=== PATIENT | male | born 1960 | race Two or more races ===

== ENCOUNTER 2017-05-08 12:19 | Emergency (ER) | payer SELFPAY ==
[~2017-05-08] VITALS: Ht 162.6 cm; Wt 86.2 kg
--- NOTE | 2017-05-08 12:40 | ER Report ---
History and Physical Time Seen By MD: 12:39 HPI/ROS CHIEF COMPLAINT: Cough, shortness of breath HISTORY OF PRESENT ILLNESS: 56-year-old male patient presents to emergency room with complaint of cough. Patient states this been going on for the past 3 days. Patient states she's not had any fevers, chills, nausea, vomiting or diarrhea. Patient states that he will have coughing fits and have a hard time catching his breath after that. Patient states that he has not taken any medication for this. 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 REVIEW OF SYSTEMS: Respiratory: As noted above Cardiovascular: No chest pain, no palpitations. Gastrointestinal: No vomiting, no abdominal pain. Musculoskeletal: No back pain. Allergies: Coded Allergies: No Known Drug Allergies (Unverified , 05/08/17) Home Meds Active Scripts Promethazine HCl/Codeine (Prometh-Codein 6.25-10 mg/5 ml) 5 Ml Syrup, 1 TSP PO QHS Y for COUGH, #120 ML Prov:MANJIT RED 05/08/17 Benzonatate (BENZONATATE) 200 Mg Capsule, 200 MG PO TID Y for COUGH, #15 CAP Prov:MANJIT RED 05/08/17 Past Medical/Surgical History Patient denies any pertinent medical or surgical history. Constitutional Vital Sign - Last 24 Hours 05/08/17 05/08/17 05/08/17 05/08/17 12:36 12:38 12:40 12:49 Temp 98.4 Pulse 73 Resp 20 B/P (MAP) 121/82 (95) 127/98 (108) 127/98 Pulse Ox 90 90 O2 Delivery Room Air 05/08/17 05/08/17 05/08/17 05/08/17 13:00 13:19 13:30 13:49 Pulse 70 63 B/P (MAP) 118/85 (96) 124/81 (95) Pulse Ox 90 85 05/08/17 14:00 B/P (MAP) 111/80 (90) Physical Exam General Appearance: The patient is alert, has no immediate need for airway protection and no current signs of toxicity. Eyes: Pupils equal and round no injection. Respiratory: Chest is non tender, lungs are clear to auscultation. Cardiac: regular rate and rhythm Gastrointestinal: Abdomen is soft and non tender, no masses, bowel sounds normal. Musculoskeletal: Neck: Neck is supple and non tender. Extremities have full range of motion and are non tender. Skin: No rashes or lesions. DIFFERENTIAL DIAGNOSIS: After history and physical exam differential diagnosis was considered for shortness of breath including but not limited to pulmonary infectious process, COPD, asthma, pulmonary embolus and congestive heart failure. Medical Decision Making Data Points Result Diagram: 05/08/17 1257 05/08/17 1257 Laboratory Hematology Test 05/08/17 12:46 05/08/17 12:57 Influenza Type A Antigen Negative (NEGATIVE) Influenza Type B Antigen Positive (NEGATIVE) Red Blood Count 4.79 M/uL (4.00-5.60) Mean Corpuscular Volume 91.8 fL (80.0-96.0) Mean Corpuscular Hemoglobin 32.4 pg (26.0-33.0) Mean Corpuscular Hemoglobin Concent 35.3 g/dL (32.0-36.0) Red Cell Distribution Width 13.0 % (11.5-14.5) Mean Platelet Volume 8.4 fL (7.2-11.1) Neutrophils (%) (Auto) 60.3 % (39.4-72.5) Lymphocytes (%) (Auto) 24.1 % (17.6-49.6) Monocytes (%) (Auto) 12.8 % (4.1-12.4) Eosinophils (%) (Auto) 0.1 % (0.4-6.7) Basophils (%) (Auto) 2.7 % (0.3-1.4) Nucleated RBC Relative Count (auto) 0.0 /100WBC Neutrophils # (Auto) 3.4 K/uL (2.0-7.4) Lymphocytes # (Auto) 1.4 K/uL (1.3-3.6) Monocytes # (Auto) 0.7 K/uL (0.3-1.0) Eosinophils # (Auto) 0.0 K/uL (0.0-0.5) Basophils # (Auto) 0.2 K/uL (0.0-0.1) Nucleated RBC Absolute Count (auto) 0.00 K/uL Sodium Level 139 mmol/L (137-145) Potassium Level 3.8 mmol/L (3.5-5.0) Chloride Level 105 mmol/L (98-107) Carbon Dioxide Level 22 mmol/L (22-30) Blood Urea Nitrogen 17 mg/dl (9-21) Creatinine 0.80 mg/dl (0.66-1.25) Glomerular Filtration Rate Calc > 60.0 Random Glucose 99 mg/dl (75-110) Calcium Level 9.0 mg/dl (8.4-10.2) Total Bilirubin 0.5 mg/dl (0.2-1.3) Aspartate Amino Transf (AST/SGOT) 108 U/L (0-35) Alanine Aminotransferase (ALT/SGPT) 154 U/L (0-56) Alkaline Phosphatase 80 U/L (0-126) Total Protein 7.4 gm/dl (6.3-8.2) Albumin 4.3 g/dl (3.5-5.0) Chemistry Test 05/08/17 12:46 05/08/17 12:57 Influenza Type A Antigen Negative (NEGATIVE) Influenza Type B Antigen Positive (NEGATIVE) White Blood Count 5.7 k/uL (4.5-11.0) Red Blood Count 4.79 M/uL (4.00-5.60) Hemoglobin 15.5 g/dL (14.0-18.0) Hematocrit 43.9 % (42.0-52.0) Mean Corpuscular Volume 91.8 fL (80.0-96.0) Mean Corpuscular Hemoglobin 32.4 pg (26.0-33.0) Mean Corpuscular Hemoglobin Concent 35.3 g/dL (32.0-36.0) Red Cell Distribution Width 13.0 % (11.5-14.5) Platelet Count 122 K/uL (150-450) Mean Platelet Volume 8.4 fL (7.2-11.1) Neutrophils (%) (Auto) 60.3 % (39.4-72.5) Lymphocytes (%) (Auto) 24.1 % (17.6-49.6) Monocytes (%) (Auto) 12.8 % (4.1-12.4) Eosinophils (%) (Auto) 0.1 % (0.4-6.7) Basophils (%) (Auto) 2.7 % (0.3-1.4) Nucleated RBC Relative Count (auto) 0.0 /100WBC Neutrophils # (Auto) 3.4 K/uL (2.0-7.4) Lymphocytes # (Auto) 1.4 K/uL (1.3-3.6) Monocytes # (Auto) 0.7 K/uL (0.3-1.0) Eosinophils # (Auto) 0.0 K/uL (0.0-0.5) Basophils # (Auto) 0.2 K/uL (0.0-0.1) Nucleated RBC Absolute Count (auto) 0.00 K/uL Glomerular Filtration Rate Calc > 60.0 Calcium Level 9.0 mg/dl (8.4-10.2) Total Bilirubin 0.5 mg/dl (0.2-1.3) Aspartate Amino Transf (AST/SGOT) 108 U/L (0-35) Alanine Aminotransferase (ALT/SGPT) 154 U/L (0-56) Alkaline Phosphatase 80 U/L (0-126) Total Protein 7.4 gm/dl (6.3-8.2) Albumin 4.3 g/dl (3.5-5.0) EKG/Imaging Imaging 2 VIEWS CHEST INDICATION: Cough, chest pain, shortness of breath. COMPARISON: None available FINDINGS: Cardiomediastinal silhouette and pulmonary vessels within normal limits. There is no focal infiltrate or lobar consolidation. There is no pneumothorax or pleural effusion. No nodule. Upper abdomen is unremarkable. No acute bony abnormality. Postsurgical changes to the left shoulder. IMPRESSION: 1. No acute cardiopulmonary process. Report Dictated By: Oliver Wilder at 05/08/2017 2:17 PM Report E-Signed By: Oliver Wilder at 05/08/2017 2:18 PM ED Course/Re-evaluation ED Course Patient was administered on exam room, history and physical were done. Differential diagnosis was considered. A CBC, CMP, influenza screen, chest x- ray were done. Lab results were unremarkable except the patient was positive for influenza B. Chest x-ray showed no acute cardiopulmonary processes. I discussed the findings with the patient. We will go ahead and discharge him home. We will give him a prescription for promethazine with codeine cough syrup and benzonatate. He is to follow-up with his primary care provider in the next week. He is return to emergency room if condition worsens. Patient verbalized understanding and agreement. Decision to Disposition Date: May 08, 2017 Decision to Disposition Time: 14:26 Depart Departure Latest Vital Signs Vital Signs Date Time Temp Pulse Resp B/P (MAP) Pulse Ox O2 Delivery O2 Flow Rate FiO2 05/08/17 14:00 111/80 (90) 05/08/17 13:49 63 85 05/08/17 12:40 98.4 20 Room Air Impression: Primary Impression: Influenza B Condition: Improved Disposition: HOME OR SELF-CARE New Scripts Promethazine HCl/Codeine (Prometh-Codein 6.25-10 mg/5 ml) 5 Ml Syrup 1 TSP PO QHS Y for COUGH, #120 ML Prov: MANJIT RED 05/08/17 Benzonatate (BENZONATATE) 200 Mg Capsule 200 MG PO TID Y for COUGH, #15 CAP Prov: MANJIT RED 05/08/17 Patient Instructions: Influenza (ED) Additional Instructions: Increase fluid intake. Get plenty of rest. Limit activity by pain. Take Tylenol or Ibuprofen as needed for fevers or pain. Follow up with your primary care provider in the next week. Stay home until you are fever free for 24 hours. MANJIT RED May 08, 2017 12:40
[2017-05-08 13:03] LABS: PLATELET COUNT, AUTOMATED 122 K/uL (150-450)
[2017-05-08 14:00] VITALS: BP 111/80
--- NOTE | 2017-05-08 14:22 | RADIOLOGY IMAGING REPORT ---
FACILITY: [facility] [place] PATIENT NAME: David Khan : 1960 MR: [id number] V: [id number] EXAM DATE: ORDERING PHYSICIAN: MANJIT RED TECHNOLOGIST: [place] [facility] [place] David Khan : 1960 Visit/Account:[id number] Date of Sevice: 05/08/2017 2 VIEWS CHEST INDICATION: Cough, chest pain, shortness of breath. COMPARISON: None available FINDINGS: Cardiomediastinal silhouette and pulmonary vessels within normal limits. There is no focal infiltrate or lobar consolidation. There is no pneumothorax or pleural effusion. No nodule. Upper abdomen is unremarkable. No acute bony abnormality. Postsurgical changes to the left shoulder. IMPRESSION: 1. No acute cardiopulmonary process. Report Dictated By: Oliver Wilder at 05/08/2017 2:17 PM Report E-Signed By: Oliver Wilder at 05/08/2017 2:18 PM [id number]
[2017-05-08] MEDS ORDERED: BENZ200C15 PO (14:28)
[2017-05-08] MEDS ORDERED: PROM5SYR PO (14:28)
== END 2017-05-08 14:34 | disposition home or self-care (01) ==
LOC: ER 12:45
DX: J11.1 Influenza due to unidentified influenza virus with other respiratory manifestations (principal)
CPT/HCPCS: 36415; 71046; 82040; 82247; 82310; 82374; 82435; 82565; 82947; 84075; 84132; 84155; 84295; 84450; 84460; 84520; 85025; 87502; 99283

== ENCOUNTER 2017-08-09 13:32 | Emergency (ER) | payer SELFPAY ==
[~2017-08-09 13:32] MED LIST: BENZ200C15 PO; PROM5SYR PO
--- NOTE | 2017-08-09 13:52 | ER Report ---
History and Physical Time Seen By MD: 13:41 Hx. of Stated Complaint: pressure chest and sob, dizzy and weak HPI/ROS CHIEF COMPLAINT: Chest pain HISTORY OF PRESENT ILLNESS: 56-year-old male patient presents to emergency room with complaint of chest pain. Patient states that his chest pain started approximately 30 minutes prior to arrival. Patient states that he has had problems in the past. He denies having any fevers, chills, nausea, vomiting or diarrhea. Patient states he has been feeling short of breath with this. Patient states that he has not taken any medication for this. REVIEW OF SYSTEMS: Respiratory: No cough, no dyspnea. Cardiovascular: As noted above Gastrointestinal: No vomiting, no abdominal pain. Musculoskeletal: No back pain. Allergies: Coded Allergies: No Known Drug Allergies (Unverified , 05/08/17) Home Meds Active Scripts Hydroxyzine Hcl (HYDROXYZINE HCL) 25 Mg Tablet, 25 MG PO Q6-8H Y for ANXIETY, # 30 TAB Prov:MANJIT RED [facility] 08/09/17 Discontinued Scripts Promethazine HCl/Codeine (Prometh-Codein 6.25-10 mg/5 ml) 5 Ml Syrup, 1 TSP PO QHS Y for COUGH, #120 ML Prov:TEOFILOMANJIT [facility] 05/08/17 Benzonatate (BENZONATATE) 200 Mg Capsule, 200 MG PO TID Y for COUGH, #15 CAP Prov:TEOFILOMANJIT [facility] 05/08/17 Past Medical/Surgical History Patient has a past medical history of fractures, alcohol use. Patient has surgical history of left shoulder surgery. Patient has a family history of heart disease. Reviewed Nurses Notes: Yes Hx Substance Use Disorder: No Hx Alcohol Use: Yes (6 PACK ) Constitutional Vital Sign - Last 24 Hours 08/09/17 08/09/17 08/09/17 08/09/17 13:32 13:36 13:38 13:40 Pulse ??? 84 Resp 16 B/P (MAP) 162/102 (122) 162/106 148/108 (121) Pulse Ox 96 O2 Delivery Room Air 08/09/17 08/09/17 08/09/17 08/09/17 13:47 14:00 14:02 14:12 Pulse 84 83 Resp 33 15 B/P (MAP) 140/98 (112) 127/93 (104) Pulse Ox 97 95 18 18 4//18 18 14:15 14:17 14:20 14:25 Pulse 92 Resp 27 B/P (MAP) 127/86 (100) ???/??? (1665) 48/44 (45) Pulse Ox 88 18 /18 /18 08/09/17 14:30 14:32 14:35 14:40 Pulse 89 Resp 27 B/P (MAP) 116/85 (95) 121/87 (98) 111/83 (92) Pulse Ox 90 18 /18 //18 08/09/17 14:45 14:47 14:50 14:55 Pulse 78 Resp 24 B/P (MAP) 114/89 (97) 118/84 (95) 115/89 (98) Pulse Ox 92 18 //18 //18 08/09/17 15:00 15:02 15:05 15:10 Pulse 74 72 Resp 20 20 B/P (MAP) 113/84 (94) 117/83 (94) 113/83 (93) Pulse Ox 89 88 08/09/18 08/09/18 //18 08/09/17 15:15 15:20 15:25 15:30 Pulse 67 Resp 21 B/P (MAP) 112/82 (92) 113/81 (92) 111/80 (90) 115/84 (94) Pulse Ox 89 18 18 18 08/09/17 15:35 15:40 15:45 15:50 Pulse 74 Resp 25 B/P (MAP) 133/94 (107) 118/86 (97) 131/96 (108) 121/85 (97) Pulse Ox 89 18 18 /18 08/09/17 15:55 16:00 16:05 16:10 Pulse 70 70 Resp 24 18 B/P (MAP) 121/84 (96) 124/85 (98) 112/84 (93) 106/84 (91) Pulse Ox 89 90 18 18 /18 08/09/17 16:15 16:20 16:25 16:30 Pulse 66 Resp 20 B/P (MAP) 119/85 (96) 115/73 (87) 108/80 (89) 110/76 (87) Pulse Ox 91 08/09/17 08/09/17 08/09/17 08/09/17 16:35 16:40 16:45 16:50 Pulse 77 68 Resp 16 27 B/P (MAP) 126/91 (103) 133/96 (108) 120/88 (99) 126/90 (102) Pulse Ox 96 92 08/09/17 08/09/17 08/09/17 08/09/17 16:55 17:00 17:05 17:10 Pulse 71 70 Resp 26 25 B/P (MAP) 128/91 (103) 125/85 (98) 129/92 (104) 122/83 (96) Pulse Ox 92 91 08/09/17 08/09/17 17:15 17:19 Temp 98.4 Pulse 77 Resp 20 B/P (MAP) 134/99 (111) Pulse Ox 93 Physical Exam General Appearance: The patient is alert, has no immediate need for airway protection and no current signs of toxicity. Respiratory: Chest is non tender, lungs are clear to auscultation. Cardiac: regular rate and rhythm Gastrointestinal: Abdomen is soft and non tender, no masses, bowel sounds normal. Musculoskeletal: Neck: Neck is supple and non tender. Extremities have full range of motion and are non tender. Skin: No rashes or lesions. DIFFERENTIAL DIAGNOSIS: After history and physical exam differential diagnosis was considered for chest pain including but not limited to myocardial ischemia, pericarditis pulmonary embolus, chest wall pain, pleural inflammation and pulmonary infectious causes. Medical Decision Making Data Points Result Diagram: 08/09/17 1340 08/09/17 1340 Laboratory Hematology Test 08/09/17 13:40 08/09/17 16:38 Red Blood Count 5.01 M/uL (4.00-5.60) Mean Corpuscular Volume 90.1 fL (80.0-96.0) Mean Corpuscular Hemoglobin 31.3 pg (26.0-33.0) Mean Corpuscular Hemoglobin Concent 34.7 g/dL (32.0-36.0) Red Cell Distribution Width 12.8 % (11.5-14.5) Mean Platelet Volume 8.5 fL (7.2-11.1) Neutrophils (%) (Auto) 47.4 % (39.4-72.5) Lymphocytes (%) (Auto) 43.2 % (17.6-49.6) Monocytes (%) (Auto) 8.5 % (4.1-12.4) Eosinophils (%) (Auto) 0.6 % (0.4-6.7) Basophils (%) (Auto) 0.3 % (0.3-1.4) Nucleated RBC Relative Count (auto) 0.1 /100WBC Neutrophils # (Auto) 3.5 K/uL (2.0-7.4) Lymphocytes # (Auto) 3.2 K/uL (1.3-3.6) Monocytes # (Auto) 0.6 K/uL (0.3-1.0) Eosinophils # (Auto) 0.0 K/uL (0.0-0.5) Basophils # (Auto) 0.0 K/uL (0.0-0.1) Nucleated RBC Absolute Count (auto) 0.01 K/uL Sodium Level 139 mmol/L (137-145) Potassium Level 3.7 mmol/L (3.5-5.0) Chloride Level 99 mmol/L (98-107) Carbon Dioxide Level 23 mmol/L (22-30) Blood Urea Nitrogen 16 mg/dl (9-21) Creatinine 1.10 mg/dl (0.66-1.25) Glomerular Filtration Rate Calc > 60.0 Random Glucose 121 mg/dl (75-110) Calcium Level 9.3 mg/dl (8.4-10.2) Total Bilirubin 0.4 mg/dl (0.2-1.3) Aspartate Amino Transf (AST/SGOT) 36 U/L (0-35) Alanine Aminotransferase (ALT/SGPT) 47 U/L (0-56) Alkaline Phosphatase 90 U/L (0-126) Total Protein 8.0 gm/dl (6.3-8.2) Albumin 4.4 g/dl (3.5-5.0) Troponin I < 0.012 ng/ml Chemistry Test 08/09/17 13:40 08/09/17 16:38 White Blood Count 7.4 k/uL (4.5-11.0) Red Blood Count 5.01 M/uL (4.00-5.60) Hemoglobin 15.7 g/dL (14.0-18.0) Hematocrit 45.2 % (42.0-52.0) Mean Corpuscular Volume 90.1 fL (80.0-96.0) Mean Corpuscular Hemoglobin 31.3 pg (26.0-33.0) Mean Corpuscular Hemoglobin Concent 34.7 g/dL (32.0-36.0) Red Cell Distribution Width 12.8 % (11.5-14.5) Platelet Count 149 K/uL (150-450) Mean Platelet Volume 8.5 fL (7.2-11.1) Neutrophils (%) (Auto) 47.4 % (39.4-72.5) Lymphocytes (%) (Auto) 43.2 % (17.6-49.6) Monocytes (%) (Auto) 8.5 % (4.1-12.4) Eosinophils (%) (Auto) 0.6 % (0.4-6.7) Basophils (%) (Auto) 0.3 % (0.3-1.4) Nucleated RBC Relative Count (auto) 0.1 /100WBC Neutrophils # (Auto) 3.5 K/uL (2.0-7.4) Lymphocytes # (Auto) 3.2 K/uL (1.3-3.6) Monocytes # (Auto) 0.6 K/uL (0.3-1.0) Eosinophils # (Auto) 0.0 K/uL (0.0-0.5) Basophils # (Auto) 0.0 K/uL (0.0-0.1) Nucleated RBC Absolute Count (auto) 0.01 K/uL Glomerular Filtration Rate Calc > 60.0 Calcium Level 9.3 mg/dl (8.4-10.2) Total Bilirubin 0.4 mg/dl (0.2-1.3) Aspartate Amino Transf (AST/SGOT) 36 U/L (0-35) Alanine Aminotransferase (ALT/SGPT) 47 U/L (0-56) Alkaline Phosphatase 90 U/L (0-126) Total Protein 8.0 gm/dl (6.3-8.2) Albumin 4.4 g/dl (3.5-5.0) Troponin I < 0.012 ng/ml EKG/Imaging EKG Interpretation 12 lead EKG: Rhythm: normal sinus rhythm with a ventricular rate of 82 bpm [place]: normal QRS: normal ST segments: normal Imaging CHEST PA AND LAT INDICATION: Chest pain, short of breath COMPARISON: May 08, 2017 FINDINGS: The cardiac silhouette is normal in size. No pneumothorax. Clear lungs. Normal osseous structures. No pleural fluid. Soft tissue anchors noted in the left proximal humerus region. IMPRESSION: No acute finding. Report Dictated By: Apollo Noriega MD at 08/09/2017 2:40 PM Report E-Signed By: Apollo Noriega MD at 08/09/2017 2:42 PM ED Course/Re-evaluation ED Course Patient is admitted and examined, history and physical were obtained. Differential diagnoses were considered. On examination lungs are clear, heart is regular, abdomen soft nontender. Patient did have elevated blood pressure initially. A CBC, CMP, troponin, EKG, chest x-ray were done. Lab results and the imaging results were negative. EKG showed a normal sinus rhythm. Troponin was undetectable. A repeat troponin was done after 3 hours. That was also negative. I discussed findings with patient. Patient did mention on my initial exam that he believes he could very well been feeling anxious. I believe is probably underlying cause. We'll go ahead and discharge patient home. I do want him to follow-up with his primary care provider in the next week. He is to continue with normal exercise. He is to return to emergency room if condition worsens. Patient verbalized understanding and agreement with plan. Decision to Disposition Date: Aug 09, 2017 Decision to Disposition Time: 17:14 Depart Departure Latest Vital Signs Vital Signs Date Time Temp Pulse Resp B/P (MAP) Pulse Ox O2 Delivery O2 Flow Rate FiO2 08/09/17 17:19 98.4 08/09/17 17:15 77 20 134/99 (111) 93 08/09/17 13:38 Room Air Impression: Primary Impression: Chest pain Additional Impression: Anxiety Condition: Improved Disposition: HOME OR SELF-CARE New Scripts Hydroxyzine Hcl (HYDROXYZINE HCL) 25 Mg Tablet 25 MG PO Q6-8H Y for ANXIETY, #30 TAB Prov: MANJIT RED 08/09/17 Patient Instructions: Chest Pain (ED) Additional Instructions: Increase fluid intake. Get plenty of rest. Follow up with a primary care provider in the next week. Return to the ER if condition worsens. Take the medication as needed for anxiety. Problem Qualifiers Primary Impression: Chest pain Chest pain type: other chest pain Qualified Codes: R07.89 - Other chest pain MANJIT RED Aug 09, 2017 13:52
[2017-08-09] MEDS ORDERED: NITROGLYCERIN 0.4 MG SUBL SL SCH (13:55)
[2017-08-09] MEDS ORDERED: ASPIRIN 81 MG CHEW PO ONE (13:55)
--- NOTE | 2017-08-09 13:58 | EKG ---
FACILITY: [facility] - [place] PATIENT NAME: SHERRY PALMER : [id number] MR: [id number] V: [id number] EXAM DATE: ORDERING PHYSICIAN: MANJIT RED TECHNOLOGIST: JAQUAN Sims Reason : CP Blood Pressure : / mmHG Vent. Rate : 082 BPM Atrial Rate : 082 BPM P-R Int : 172 ms QRS Dur : 100 ms QT Int : 362 ms P-R-T Axes : 022 043 015 degrees QTc Int : 422 ms Normal sinus rhythm Normal ECG No previous ECGs available Confirmed by HORACIO ALVAREZ ([id number]) on 08/09/2017 6:57:45 PM Referred By: MARIA DEL CARMEN Confirmed By:HORACIO ALVAREZ
[2017-08-09 14:04] LABS: PLATELET COUNT, AUTOMATED 149 K/uL (150-450)
--- NOTE | 2017-08-09 14:46 | RADIOLOGY IMAGING REPORT ---
FACILITY: [facility] PATIENT NAME: David Khan : 1960 MR: [id number] V: [id number] EXAM DATE: ORDERING PHYSICIAN: MANJIT RED TECHNOLOGIST: Location: [facility] - [place] Patient: David Khan : 1960 Visit/Account:[id number] Date of Sevice: 08/09/2017 CHEST PA AND LAT INDICATION: Chest pain, short of breath COMPARISON: May 08, 2017 FINDINGS: The cardiac silhouette is normal in size. No pneumothorax. Clear lungs. Normal osseous st ructures. No pleural fluid. Soft tissue anchors noted in the left proximal humerus region. IMPRESSION: No acute finding. Report Dictated By: Apollo Noriega MD at 08/09/2017 2:40 PM Report E-Signed By: Apollo Noriega MD at 08/09/2017 2:42 PM WSN:[id number]
[2017-08-09] MEDS ORDERED: HYDR-4225 PO (17:12)
[2017-08-09 17:15] VITALS: BP 134/99
== END 2017-08-09 17:23 | disposition home or self-care (01) ==
LOC: ER 14:20
DX: R07.89 Other chest pain (principal); F41.9 Anxiety disorder, unspecified
CPT/HCPCS: 71046; 82040; 82247; 82310; 82374; 82435; 82565; 82947; 84075; 84132; 84155; 84295; 84450; 84460; 84484; 84520; 85025; 93005; 99284